=== PATIENT | female | born 2000 | race Caucasian/White ===

== ENCOUNTER 2021-11-02 17:57 | Emergency (ER) | payer OTHER ==
[2021-11-02 20:27] LABS: HEMOGLOBIN 12.1 gm/dl (12.3-15.3); RED BLOOD COUNT 4.51 M/UL (4.00-5.10); WHITE BLOOD COUNT 14.1 K/UL (4.5-11.0)
[2021-11-02 20:48] LABS: BUN/CREATININE RATIO 22 (0-10)
[2021-11-02] MEDS ORDERED: OMNICEF 300 MG300 MG PO (22:32)
== END 2021-11-02 23:00 | disposition home or self-care (01) ==
LOC: ER1 17:57
PROVIDERS: Student in an Organized Health Care Education/Training Program
DX: N39.0 Urinary tract infection, site not specified (principal); Z90.89 Acquired absence of other organs; Z91.040 Latex allergy status
CPT/HCPCS: 80053; 81001; 83690; 84703; 85025; 96374; 99284; J0696